=== PATIENT | male | born 1990 | race Caucasian/White ===

== ENCOUNTER 2016-05-10 20:57 | Emergency (ER) | payer OTHER ==
--- OUTSIDE RECORDS SUMMARY | 2016-05-10 22:54 | XMS REPORT | Continuity of Care Document ---
:1990 Author Organization [facility] ([facility]) [place] [address] Phone [phone] Care Team Providers Name Role Phone Unavailable Primary Care Provider Unavailable Source Comments This disclosure is being made pursuant to the Care Everywhere program, applicable federal and state laws, and may not contain all informaitonavailable regarding this patient.[facility] ([facility]) Active Allergies and Adverse Reactions No Active Allergies Current Medications Not on file Active Problems Not on file Social History Tobacco Use Types Packs/Day Years Used Date Never Assessed Last Filed Vital Signs Vital Sign Reading Time Taken Blood Pressure 129/66 05/03/2003 8:14 AM GUIDANCE CONSULTANT Pulse 68 05/03/2003 8:14 AM GUIDANCE CONSULTANT Temperature 36.9 C (98.42 F) 05/03/2003 8:14 AM GUIDANCE CONSULTANT Respiratory Rate 20 05/03/2003 8:14 AM GUIDANCE CONSULTANT Height 1.73 m (5' 8.11") 05/03/2003 8:14 AM GUIDANCE CONSULTANT Weight 87 kg (191 lb 12.8 oz) 05/03/2003 8:14 AM GUIDANCE CONSULTANT Body Mass Index 29.07 05/03/2003 8:14 AM GUIDANCE CONSULTANT Oxygen Saturation - - Plan of Care Health Maintenance Due Date Last Done Comments Hepatitis B Vaccine (1 of 3 - Primary Series) 1989 HPV Vaccine (1 of 3 - Male 3 Dose Series) 2000 Tdap Vaccine 2000 Lipid Disorder Screening 07/17/2007 MMR Vaccine 07/17/2007 Td Vaccine 07/17/2007 Varicella Vaccine (1 of 2 - Adult - No Evidence of 07/17/2007 Immunity) Influenza Vaccine: Seasonal (#1) 10/13/2015 Results from Last 3 Months Not on file
--- NOTE | 2016-05-10 22:56 | ERNOTE ---
Headache ER HPI - General Presenting Symptoms: headache Time Seen by Provider: 05/10/16 22:48 Source: patient Exam Limitations: no limitations - Immun/Allergies/Home Medications Immunizations: IMMUNIZATION HX Immunizations Up to Date Yes History of Influenza Vaccine No Allergies/Adverse Reactions: Allergies No Known Allergies Allergy (Unverified 12/16/15 15:14) Home Medications: HOME MEDICATIONS Levothyroxine Sodium [Synthroid] 75 mcg PO DAILY 12/16/15 [Last Taken Unknown] Venlafaxine HCl [Effexor Xr] 150 mg PO DAILY 12/16/15 [Last Taken Unknown] Venlafaxine HCl [Effexor] 75 mg PO DAILY 12/16/15 [Last Taken Unknown] ALPRAZolam [Xanax] 1 mg PO TID PRN 05/10/16 [Last Taken Unknown] Amox Tr/Potassium Clavulanate [Augmentin 875-125 Tablet] 875 mg PO Q12H #20 tab 05/11/16 [Last Taken Unknown] - Pain Pain Score: 6 - History of Present Illness Narrative: Pt states that he woke up with a headache, it did not wake him up. has increased throughout the day and is 6/10 now. States he has "migraines" 3-4 times a week. Usually takes advil migraine or plain ibuprofen and that usually works. He does not have a diagnosis of migraine Activity at onset: other - sleep Timing of Headache: still present Quality: Present: pressure Severity Maximum: Present: moderate Severity-Currently: Present: moderate Headache frequency: Present: frequent headaches, similar to previous headache Modifying Factors - (Improves): Reports: medication - usually Review of Systems - Review of Systems Constitutional: Absent: fever, chills EYE: Present: no symptoms reported ENT: Present: nose congestion - minimal Respiratory: Present: no symptoms reported Cardiology: Present: no symptoms reported Gastrointestinal/Abdominal: Present: no symptoms reported Genitourinary: Present: no symptoms reported Musculoskeletal: Absent: back pain, muscle pain Skin: Present: no symptoms reported Neurological: Absent: weakness, numbness, tingling Endocrine: Present: no symptoms reported Hematologic/Lymphatic: Present: no symptoms reported Psych: Present: no symptoms reported - Patient's Past Medical History Patient History - Medical: Anxiety, Depression, Hypothyroidism Patient History - Cardiac/Respiratory: Asthma Patient History - Cancer: No Hx of Cancer Patient History - Surgical Procedures: No surgical history Patient History - Other: None - Social History Living Situations: home Psych History: Hx of Anxiety, Hx of Depression, Hx of Bipolar Disorder Smoking Status: Former smoker Have you smoked in the past 12 months: No Do you dip or chew tobacco: No Patient requests Smoking Cessation Consult: No Initiate information on Smoking Cessation: No Alcohol Use: none Drug Use: none - Immunizations Immunizations Up to Date: Yes History of Influenza Vaccine: No Physical Exam - Physical Exam General Appearance: Present: wd/wn, no apparent distress Eye Exam: Normal inspection: bilateral, PERRL: bilateral, EOMI: bilateral Ears, Nose, Throat: Present: nasal congestion - and erythema, sinus pain/ drainage, normal pharynx Neck: Present: normal inspection, nontender Respiratory: Present: no respiratory distress, normal breath sounds, no accessory muscle use Cardiovascular/Chest: Present: regular rate, rhythm, no murmur Back Exam: Present: normal inspection, normal range of motion Extremity Exam: Present: normal inspection, non-tender, no edema Neurological Exam: Present: alert, oriented, normal mood/affect, no motor/ sensory deficits ED Progress - Results and Orders Patient's Lab Results:: I have reviewed the patient's lab results. Results and Orders: Laboratory Tests 05/10/16 05/10/16 23:05 23:05 WBC 14.0 H Hgb 15.6 Hct 46.8 Sodium 140 Potassium 4.0 Chloride 104 Carbon Dioxide 27.7 BUN 16 Creatinine 0.96 Random Glucose 86 Calcium 8.9 - Vital Signs Patient's Vital Signs:: I have reviewed the patient's vital signs. Vital Signs: Vital Signs 05/10/16 05/10/16 21:00 22:38 Temperature 36.3 C L 36.4 C L Pulse Rate 93 78 Respiratory 18 16 Rate Blood Pressure 144/88 133/73 O2 Sat by Pulse 100 98 Oximetry - Progress/Reassessment Chief Complaint: Headache Progress Note-Subjective: 05/11/16 01:00 Pt feeling much better. discussed sinusitis Departure Clinical Impression: Sinus headache Sinusitis Qualifiers: Sinusitis location: frontal Chronicity: acute Recurrence: not specified as recurrent Qualified Code(s): J01.10 - Acute frontal sinusitis, unspecified - Departure Disposition: Home self-care Condition: Good Instructions: Sinusitis, Adult, [id number] Additional Instructions: Sinus rinse may also help with your symptoms Referrals: Jaleel Mcknight DO [Primary Care Provider] - Prescriptions: Amox Tr/Potassium Clavulanate [Augmentin 875-125 Tablet] 875 mg PO Q12H #20 tab
[2016-05-10 23:10] LABS: Hematocrit 46.8 % (42.0-52.0); Hemoglobin 15.6 gm/dL (13.5-18.0); Mean Cell Volume 87.6 fl (78-100); Mean Corpuscular Hemoglobin 29.2 pg (27-31); Mean Corpuscular Hgb Conc 33.3 g/dl (32-36); Mean Platelet Volume 9.4 fl (6.0-9.5); Neutrophil # 9.9 K/mm3 (1.3-6.0); Neutrophil % 70.6 % (42-75.0); Platelet Count 367 K/mm3 (150-450); Red Blood Count 5.34 M/mm3 (4.7-6.0); Red Cell Distribution Width 13.6 % (11.5-14.0)
[2016-05-10 23:29] LABS: Anion Gap 12.3 mmol/L (6.8-13.8); BUN/Creatinine Ratio 16.7 (9.0-21.6); Calcium * 8.9 mg/dL (7.9-10.9); Carbon Dioxide 27.7 mmol/L (24-32.6); Estimated Creat Clear 131.8
[2016-05-11] MEDS ORDERED: KETOROLAC TROMETHAMINE 60 MG/2 ML VIAL IM ONE ×2 (00:07→00:11)
[2016-05-11 00:55] VITALS: BP 132/79
== END 2016-05-11 00:55 | disposition home or self-care (01) ==
LOC: ER 20:57
DX: R51 Headache (principal); J01.10 Acute frontal sinusitis, unspecified; E03.9 Hypothyroidism, unspecified

== ENCOUNTER 2016-05-22 10:05 | Emergency (ER) | payer OTHER ==
[2016-05-22 10:42] LABS: Hematocrit 46.5 % (42.0-52.0); Hemoglobin 15.2 gm/dL (13.5-18.0); Mean Cell Volume 88.6 fl (78-100); Mean Corpuscular Hgb Conc 32.7 g/dl (32-36); Mean Platelet Volume 9.3 fl (6.0-9.5); Neutrophil # 6.6 K/mm3 (1.3-6.0); Neutrophil % 69.4 % (42-75.0); Platelet Count 326 K/mm3 (150-450); Red Blood Count 5.25 M/mm3 (4.7-6.0); Red Cell Distribution Width 13.8 % (11.5-14.0); White Blood Count 9.5 K/mm3 (4.0-10.5)
[2016-05-22] MEDS ORDERED: ZIPRASIDONE MESYLATE 20 MG VIAL IM ONE ×2 (10:48→11:00)
[2016-05-22 10:53] LABS: Urine Appearance Clear; Urine Bilirubin Negative (NEGATIVE); Urine Blood Negative /ul (NEGATIVE); Urine Color Yellow; Urine Ketone Negative (NEGATIVE); Urine Specific Gravity 1.025 SP.GR. (1.005-1.030)
[2016-05-22 10:54] LABS: Urine Bacteria None Seen; Urine Nitrite Negative (NEGATIVE); Urine Protein Negative (NEGATIVE); Urine RBC None Seen /hpf (0-5); Urine Urobilinogen Normal (NORMAL); Urine WBC None Seen /hpf (0-5); Urine pH 5.5 pH (5.0-7.0)
[2016-05-22 10:55] LABS: Cocaine Ur Negative (NEGATIVE); Urine Barbiturate Negative (NEGATIVE); Urine Opiates Negative (NEGATIVE); Urine PCP Negative (NEGATIVE); Urine THC Negative (NEGATIVE)
[2016-05-22 10:56] LABS: Urine Benzodiazepines Positive (NEGATIVE)
[2016-05-22 11:04] LABS: ALT 52 U/L (19-67); AST 26 U/L (0-48); Albumin * 3.7 gm/dl (3.4-5.0); Alkaline Phosphatase * 77 U/L (50-170); Anion Gap 9.2 mmol/L (6.8-13.8); Bilirubin, Total 0.3 mg/dL (0.0-1.1); Blood Urea Nitrogen 17 mg/dL (6-23); Ca. Corrected For Albumin 9.1 mg/dL (8.4-10.2); Calcium * 9.2 mg/dL (7.9-10.9); Carbon Dioxide 30.7 mmol/L (24-32.6); Chloride 105 mmol/L (97-106); Glucose * 104 mg/dL (70-110); Potassium 3.9 mmol/L (3.4-4.6); Salicylate Less than 2.8 mg/dL (2.8-20.0); Sodium 141 mmol/L (132-142); TSH * 3.575 uIU/mL (0.358-3.74); Total Protein 7.6 gm/dL (6.2-8.2)
--- OUTSIDE RECORDS SUMMARY | 2016-05-22 11:10 | XMS REPORT | Continuity of Care Document ---
:1990 Author Organization [facility] ([facility]) Address [place] [address] Phone [phone] Care Team Providers Name Role Phone Unavailable Primary Care Provider Unavailable Source Comments This disclosure is being made pursuant to the Care Everywhere program, applicable federal and state laws, and may not contain all informaitonavailable regarding this patient.[facility] ([facility]) Active Allergies and Adverse Reactions No Active Allergies Current Medications Not on file Active Problems Not on file Social History Tobacco Use Types Packs/Day Years Used Date Never Assessed Last Filed Vital Signs Vital Sign Reading Time Taken Blood Pressure 129/66 05/03/2003 8:14 AM FINANCIAL COST ANALYST Pulse 68 05/03/2003 8:14 AM FINANCIAL COST ANALYST Temperature 36.9 C (98.42 F) 05/03/2003 8:14 AM FINANCIAL COST ANALYST Respiratory Rate 20 05/03/2003 8:14 AM FINANCIAL COST ANALYST Height 1.73 m (5' 8.11") 05/03/2003 8:14 AM FINANCIAL COST ANALYST Weight 87 kg (191 lb 12.8 oz) 05/03/2003 8:14 AM FINANCIAL COST ANALYST Body Mass Index 29.07 05/03/2003 8:14 AM FINANCIAL COST ANALYST Oxygen Saturation - - Plan of Care [...]
--- NOTE | 2016-05-22 12:03 | ERNOTE ---
Psychological HPI - Date Date of Service: 05/22/16 - General Chief Complaint: Suicide Attempt Source: Reports: patient, family Exam Limitations: Reports: no limitations - Immun/Allergies/Home Medications Allergies/Adverse Reactions: Allergies No Known Allergies Allergy (Unverified 12/16/15 15:14) Home Medications: HOME MEDICATIONS Levothyroxine Sodium [Synthroid] 75 mcg PO DAILY 12/16/15 [Last Taken 05/22/16 08:00] Venlafaxine HCl [Effexor Xr] 150 mg PO DAILY 12/16/15 [Last Taken 05/22/16 08:00 ] ALPRAZolam [Xanax] 1 mg PO QID PRN 05/10/16 [Last Taken Unknown] Aripiprazole 15 mg PO DAILY 05/22/16 [Last Taken 05/22/16 08:00 15mg] [place] Carbonate 300 mg PO HS 05/22/16 [Last Taken Unknown] - History of Present Illness Narrative: Last night and the night before he took a handful of xanax to try to kill himself, partly because he can't sleep, and partly because he feels trapped in his house, with no opportunity to get out and do anything fun. Sees Raissa Gramajo at [facility] for his meds. His last appt with her was cancelled because of her illness, so his next appt is in 3 and 1/2 weeks. He still feels suicidal at the present time, either by taking pills or driving a car into a ditch. He has attempted twice in the past, once visiting a hospital because of it resulting in an overnight stay, and once with no health care attention. He has been hospitalized one time in the past for psychiatric issues. Time Seen by Provider: 05/22/16 10:36 Arrived by: Reports: private car Onset/duration: Reports: gradual onset, continues in ED Intent: Reports: prior thoughts of suicide, wants to escape Mechanism: Reports: overdose Situational Problems: Reports: other Associated Symptoms: Reports: depressed, frustrated, suicidal thoughts, specific plan, made gestures Prior Treament: Reports: treated by physician. Denies: currently on antibiotics Review of Systems - Review of Systems Constitutional: Present: malaise EYE: Present: no symptoms reported ENT: Present: no symptoms reported Respiratory: Present: no symptoms reported Cardiology: Present: no symptoms reported Gastrointestinal/Abdominal: Present: no symptoms reported Genitourinary: Present: no symptoms reported Musculoskeletal: Present: no symptoms reported Skin: Present: no symptoms reported Neurological: Present: depressed Endocrine: Present: no symptoms reported Hematologic/Lymphatic: Present: no symptoms reported Psych: Present: See HPI All Other Systems: All systems neg except as marked - Patient's Past Medical History Patient History - Medical: Anxiety, Depression, Hypothyroidism Patient History - Cardiac/Respiratory: Asthma Patient History - Cancer: No Hx of Cancer Patient History - Surgical Procedures: No surgical history Patient History - Other: None - Family History Mother Family History - Medical: No pertinent hx Father Family History - Medical: History Unknown - Social History Living Situations: significant other Psych History: Hx of Anxiety, Hx of Depression, Hx of Bipolar Disorder Smoking Status: Former smoker Have you smoked in the past 12 months: No Do you dip or chew tobacco: No Alcohol Use: none Drug Use: none - Immunizations Immunizations Up to Date: Yes Hx Pneumococcal Vaccination: No History of Influenza Vaccine: No Physical Exam - Physical Exam General Appearance: Present: wd/wn, no apparent distress, lethargic Eye Exam: Normal inspection: bilateral, PERRL: bilateral, EOMI: bilateral Ears, Nose, Throat: Present: normal ENT inspection Neck: Present: normal inspection Respiratory: Present: no respiratory distress, normal breath sounds Cardiovascular/Chest: Present: regular rate, rhythm, no murmur Gastrointestinal/Abdominal: Present: normal bowel sounds, nontender, nondistended, soft, no organomegaly Back Exam: Present: normal inspection Extremity Exam: Present: normal inspection, pedal edema Neurological Exam: Present: oriented. Absent: normal mood/affect Skin Exam: Present: normal color, warm/dry ED Progress - Results and Orders Patient's Lab Results:: I have reviewed the patient's lab results. - Vital Signs Patient's Vital Signs:: I have reviewed the patient's vital signs. Vital Signs: Vital Signs 05/22/16 10:11 Temperature 37 C Pulse Rate 102 H Respiratory 18 Rate Blood Pressure 136/87 O2 Sat by Pulse 100 Oximetry - EKG EKG: NSR EKG read: Interp. by me - Progress/Reassessment Chief Complaint: Suicide Attempt Progress Note-Subjective: 05/22/16 11:54 I spoke with him, his grandmother and his significant other, and they all agree his suicide risk is high at the present time. We will look for a psychiatric bed. 05/22/16 13:16 Spoke with Ase Master Mechanic Rob Boyer who gave us an emergency involuntary hold order by phone. Pt had just insisted he was leaving, but now has become more calm and is again ready to stay. 05/22/16 16:55 We have obtained a psych bed at [facility] in [place]. We will secure transportation, and transfer the patient. Departure Clinical Impression: Suicidal behavior with attempted self-injury, Suicidal ideation, Major depress dis, severe - Departure Disposition: Other health care facility Condition: Fair
[2016-05-22 19:13] VITALS: BP 127/72
== END 2016-05-22 19:09 | disposition short-term general hospital (02) ==
LOC: ER 10:05
DX: T14.91 Suicide attempt (principal); T42.4X2A Poisoning by benzodiazepines, intentional self-harm, initial encounter; Y92.009 Unspecified place in unspecified non-institutional (private) residence as the place of occurrence of the external cause; R45.851 Suicidal ideations; F32.2 Major depressive disorder, single episode, severe without psychotic features; E03.9 Hypothyroidism, unspecified
CPT/HCPCS: 36415; 80053; 80178; 80307; 81001; 84443; 85025; 99285; G0480; G0481